=== PATIENT | female | born 1995 | race Caucasian/White ===

== ENCOUNTER 2017-06-03 21:23 | Inpatient (IN) | payer BC, OTHER ==
[~2017-06-03] VITALS: Ht 160 cm; Wt 62.6 kg
[~2017-06-03 21:23] MED LIST: ALBU8.5H8 INH; ASCO250T5 PO; CLON0.1T PO; DICY20TA28 PO; FERR325T28 PO; GABA600T2 PO; HYDR-3895 PO; Ibuprofen PO; NORE1TAB PO; ONDA4TAB5 PO; QUET400T PO
[2017-06-04] MEDS ORDERED: ACETAMINOPHEN 325 MG TABLET PO PRN (02:30)
[2017-06-04] MEDS ORDERED: LOPERAMIDE HCL 2 MG CAPSULE PO PRN ×2 (02:30)
[2017-06-04] MEDS ORDERED: BUPRENORPHINE HCL 2 MG TAB.SUBL SL PRN ×3 (02:30→12:15)
[2017-06-04] MEDS ORDERED: MAG HYDROX/AL HYDROX/SIMETH 30 ML LIQUID UDC PO PRN (02:30)
[2017-06-04] MEDS ORDERED: ONDANSETRON ODT 4 MG TAB.RAPDIS SL PRN (02:30)
[2017-06-04] MEDS ORDERED: diphenhydrAMINE 50 MG CAPSULE PO PRN (02:30)
[2017-06-04] MEDS ORDERED: DICYCLOMINE HCL 20 MG TABLET PO PRN (02:30)
[2017-06-04] MEDS ORDERED: MAGNESIUM HYDROXIDE 30 ML LIQUID UDC PO PRN (02:30)
[2017-06-04] MEDS ORDERED: CLONIDINE HCL 0.1 MG TABLET PO PRN (02:30)
[2017-06-04 03:15] LABS: ALANINE AMINOTRANSFERASE 30 U/L (14-59); ALKALINE PHOSPHATASE 87 U/L (50-136); ASPARTATE AMINOTRANSFERASE 10 U/L (15-37); BILIRUBIN,TOTAL 0.3 mg/dL (0.2-1.0); CARBON DIOXIDE 25 mmol/L (21-32); CHLORIDE 105 mmol/L (98-107); GLUCOSE 132 mg/dL (74-106); MAGNESIUM 2.2 mg/dL (1.8-2.4); POTASSIUM 3.8 mmol/L (3.5-5.1); TOTAL PROTEIN, SERUM 7.9 g/dL (6.4-8.2); UREA NITROGEN, BLOOD 8 mg/dL (7-18)
[2017-06-04 03:18] LABS: *URINE HCG, QUAL NEGATIVE (NEGATIVE)
[2017-06-04 03:19] LABS: ETHANOL < 3 MG/DL (0-0)
[2017-06-04 03:24] LABS: THYROID STIMULATING HORMONE 0.732 mIU/mL (0.358-3.740)
[2017-06-04 03:27] LABS: *AMPHETAMINE, URINE POSITIVE (NEGATIVE); *BARBITURATE, URINE NEGATIVE (NEGATIVE); *CANNABINOID, URINE POSITIVE (NEGATIVE); *COCCAINE, URINE NEGATIVE (NEGATIVE); *OPIATE, URINE POSITIVE (NEGATIVE); *PHENCYCLIDINE SCREEN,URINE NEGATIVE (NEGATIVE)
[2017-06-04 04:00] VITALS: BP 136/79
[2017-06-04 04:03] LABS: BASOPHILS % (AUTO) 0.4 % (0.0-2.0); EOSINOPHILS # (AUTO) 0.1 K/uL (0.0-0.7); EOSINOPHILS % (AUTO) 0.9 % (0.0-7.0); HEMATOCRIT 34.1 % (37-47); HEMOGLOBIN 11.3 G/DL (12.0-16.0); LYMPHOCYTES # (AUTO) 2.7 K/UL (0.8-4.8); LYMPHOCYTES % (AUTO) 30.8 % (20.5-51.5); MEAN CORPUSCULAR HEMOGLOBIN 26.5 UUG (27.0-31.0); MEAN CORPUSCULAR HGB CONC 33 g/dL (32.0-37.0); MEAN CORPUSCULAR VOLUME 80.1 FL (81.0-99.0); MONOCYTES # (AUTO) 0.7 K/UL (0.1-1.30); MONOCYTES % (AUTO) 7.6 % (0.0-11.0); NEUTROPHILS # (AUTO) 5.3 K/UL (1.8-8.9); NEUTROPHILS % (AUTO) 60.3 % (38.5-71.5); PLATELET COUNT (AUTO) 348 K/UL (150-450); RED BLOOD CELL COUNT(AUTO) 4.25 MIL/UL (4.2-5.4); WHITE BLOOD COUNT (AUTO) 8.8 K/UL (4.0-11.2)
[2017-06-04] MEDS ORDERED: QUET50TA PO (04:17)
[2017-06-04] MEDS: METHOCARBAMOL 750 MG TABLET PO PRN ×2 (04:24→13:52)
[2017-06-04] MEDS: IBUPROFEN 400 MG TABLET PO PRN ×2 (04:24→13:51)
[2017-06-04] MEDS: HYDROXYZINE PAMOATE 25 MG CAPSULE PO PRN ×2 (04:24→13:52)
[2017-06-04] MEDS ORDERED: diphenhydrAMINE 50 MG CAPSULE ONE (04:27)
[2017-06-04] MEDS ORDERED: IBUPROFEN 400 MG TABLET ONE (04:27)
[2017-06-04] MEDS ORDERED: CLONIDINE HCL 0.1 MG TABLET ONE (04:27)
[2017-06-04] MEDS ORDERED: METHOCARBAMOL 750 MG TABLET ONE (04:28)
[2017-06-04] MEDS ORDERED: HYDROXYZINE PAMOATE 25 MG CAPSULE ONE (04:28)
[2017-06-04 08:00] VITALS: BP 104/65
[2017-06-04] MEDS: MULTIVITAMINS,THERAPEUTIC TABLET PO SCH (09:27)
[2017-06-04] MEDS ORDERED: ALBUTEROL SULFATE 2.5 MG/3 ML NEBU NEB PRN (11:15)
[2017-06-04] MEDS ORDERED: ALBUTEROL SULFATE 8 GM HFA.AER.AD INH PRN (11:15)
[2017-06-04] MEDS ORDERED: VENTOLIN IH PRN (11:30)
[2017-06-04 12:00] VITALS: BP 111/47
[2017-06-04] MEDS ORDERED: Medication Not On Formulary EA (Gabapentin 600 MG) PO SCH (13:00)
[2017-06-04] MEDS: GABAPENTIN 300 MG CAPSULE PO SCH ×2 (13:51→17:01)
[2017-06-04 16:00] VITALS: BP 115/73
[2017-06-04 20:00] VITALS: BP 125/71
[2017-06-04] MEDS ORDERED: QUETIAPINE FUMARATE 200 MG TABLET PO SCH (21:00)
[2017-06-04] MEDS: FERROUS SULFATE 325 MG TABEC PO SCH (21:50)
[2017-06-05] VITALS (7 sets, daily range): BP systolic 101–127; BP diastolic 58–85
[2017-06-05 06:07] LABS: HEPATITIS B SURFACE AG Negative (Negative)
[2017-06-05] MEDS: ETHINYL ESTRADIOL PO SCH (09:00)
[2017-06-05] MEDS: [UNRECOGNIZED DRUG - OTHER] PO SCH (09:00)
[2017-06-05] MEDS ORDERED: TUBERCULIN,PURIF.PROT.DERIV. 5 TU/0.1 ML TEST ID ONE (09:00)
[2017-06-05] MEDS: NORETHINDRONE PO SCH (09:00)
[2017-06-05] MEDS ORDERED: NORETHINDRONE ETHINYL ESTRAD PO SCH (09:00)
[2017-06-05] MEDS: GABAPENTIN 300 MG CAPSULE PO SCH ×3 (10:04→17:13)
[2017-06-05] MEDS: MULTIVITAMINS,THERAPEUTIC TABLET PO SCH (10:04)
[2017-06-05] MEDS: FERROUS SULFATE 325 MG TABEC PO SCH ×2 (10:04→20:38)
[2017-06-05] MEDS: ASCORBIC ACID 250 MG TABLET PO SCH (10:04)
[2017-06-05] MEDS: BUPRENORPHINE HCL 2 MG TAB.SUBL SL SCH ×3 (11:32→20:38)
[2017-06-05] MEDS: METHOCARBAMOL 750 MG TABLET PO PRN (20:38)
[2017-06-05] MEDS: QUETIAPINE FUMARATE 200 MG TABLET PO SCH ×2 (21:46→23:07)
[2017-06-06] VITALS: BP 123/80
[2017-06-06 08:00] VITALS: BP 124/71
[2017-06-06] MEDS ORDERED: BUPRENORPHINE HCL 2 MG TAB.SUBL SL SCH ×2 (09:00→15:00)
[2017-06-06] MEDS: ETHINYL ESTRADIOL PO SCH (09:00)
[2017-06-06] MEDS: [UNRECOGNIZED DRUG - OTHER] PO SCH (09:00)
[2017-06-06] MEDS: NORETHINDRONE PO SCH (09:00)
[2017-06-06] MEDS: MULTIVITAMINS,THERAPEUTIC TABLET PO SCH (10:06)
[2017-06-06] MEDS: ASCORBIC ACID 250 MG TABLET PO SCH (10:06)
[2017-06-06] MEDS: GABAPENTIN 300 MG CAPSULE PO SCH ×3 (10:06→17:00)
[2017-06-06] MEDS: FERROUS SULFATE 325 MG TABEC PO SCH ×2 (10:06→20:56)
[2017-06-06 12:00] VITALS: BP 118/64
[2017-06-06] MEDS ORDERED: IBUPROFEN 600 MG TABLET PO PRN (12:15)
[2017-06-06] MEDS ORDERED: KETOROLAC TROMETHAMINE 30 MG INJ IM PRN (12:15)
[2017-06-06] MEDS: BUPRENORPHINE HCL 2 MG TAB.SUBL SL SCH ×3 (13:00→20:57)
[2017-06-06] MEDS: BACLOFEN 10 MG TABLET PO SCH ×2 (15:00→20:56)
[2017-06-06 16:00] VITALS: BP 115/62
[2017-06-06 20:00] VITALS: BP 128/64
[2017-06-06] MEDS: QUETIAPINE FUMARATE 200 MG TABLET PO SCH (20:56)
[2017-06-07] VITALS: BP 132/68
[2017-06-07] MEDS: QUETIAPINE FUMARATE 200 MG TABLET PO SCH ×3 (00:06→22:46)
[2017-06-07 04:00] VITALS: BP 130/72
[2017-06-07 08:13] VITALS: BP 113/72
[2017-06-07] MEDS: NORETHINDRONE PO SCH (09:00)
[2017-06-07] MEDS: [UNRECOGNIZED DRUG - OTHER] PO SCH (09:00)
[2017-06-07] MEDS: ETHINYL ESTRADIOL PO SCH (09:00)
[2017-06-07] MEDS: ASCORBIC ACID 250 MG TABLET PO SCH (09:51)
[2017-06-07] MEDS: GABAPENTIN 300 MG CAPSULE PO SCH ×3 (09:51→17:00)
[2017-06-07] MEDS: MULTIVITAMINS,THERAPEUTIC TABLET PO SCH (09:51)
[2017-06-07] MEDS: BACLOFEN 10 MG TABLET PO SCH ×3 (09:51→21:06)
[2017-06-07] MEDS: FERROUS SULFATE 325 MG TABEC PO SCH ×2 (09:51→21:06)
[2017-06-07] MEDS: BUPRENORPHINE HCL 2 MG TAB.SUBL SL SCH ×3 (09:51→21:06)
[2017-06-07 12:25] VITALS: BP 125/76
[2017-06-07 17:04] VITALS: BP 114/71
[2017-06-07 20:00] VITALS: BP 116/67
[2017-06-08] VITALS: BP 121/74
[2017-06-08 08:00] VITALS: BP 117/64
[2017-06-08] MEDS: [UNRECOGNIZED DRUG - OTHER] PO SCH (09:00)
[2017-06-08] MEDS: BACLOFEN 10 MG TABLET PO SCH ×3 (09:00→20:45)
[2017-06-08] MEDS ORDERED: BUPRENORPHINE HCL 2 MG TAB.SUBL SL SCH (09:00)
[2017-06-08] MEDS: ASCORBIC ACID 250 MG TABLET PO SCH (09:00)
[2017-06-08] MEDS: NORETHINDRONE PO SCH (09:00)
[2017-06-08] MEDS: MULTIVITAMINS,THERAPEUTIC TABLET PO SCH (09:00)
[2017-06-08] MEDS: FERROUS SULFATE 325 MG TABEC PO SCH ×2 (09:00→20:45)
[2017-06-08] MEDS: GABAPENTIN 300 MG CAPSULE PO SCH ×3 (09:00→17:18)
[2017-06-08] MEDS: ETHINYL ESTRADIOL PO SCH (09:00)
[2017-06-08 12:00] VITALS: BP 116/91
[2017-06-08 16:00] VITALS: BP 116/60
[2017-06-08] MEDS ORDERED: DICY20TA28 PO (16:42)
[2017-06-08] MEDS ORDERED: GABA-534 PO (16:42)
[2017-06-08] MEDS ORDERED: CLON0.1T14 PO (16:42)
[2017-06-08] MEDS ORDERED: METH-406 PO (16:42)
[2017-06-08] MEDS ORDERED: QUET200T PO (16:42)
[2017-06-08] MEDS ORDERED: HYDR-3895 PO (16:42)
[2017-06-08 17:31] LABS: *AMPHETAMINE, URINE NEGATIVE (NEGATIVE); *BARBITURATE, URINE NEGATIVE (NEGATIVE); *CANNABINOID, URINE POSITIVE (NEGATIVE); *COCCAINE, URINE NEGATIVE (NEGATIVE); *OPIATE, URINE NEGATIVE (NEGATIVE); *PHENCYCLIDINE SCREEN,URINE NEGATIVE (NEGATIVE)
[2017-06-08 20:00] VITALS: BP 121/73
[2017-06-08] MEDS: QUETIAPINE FUMARATE 200 MG TABLET PO SCH ×2 (20:45→21:30)
[2017-06-09] VITALS: BP 135/84
[2017-06-09 04:00] VITALS: BP 125/80
[2017-06-09] MEDS: NORETHINDRONE PO SCH (09:00)
[2017-06-09] MEDS: [UNRECOGNIZED DRUG - OTHER] PO SCH (09:00)
[2017-06-09] MEDS: ETHINYL ESTRADIOL PO SCH (09:00)
[2017-06-09 09:09] VITALS: BP 111/69
[2017-06-09] MEDS: GABAPENTIN 300 MG CAPSULE PO SCH (09:19)
[2017-06-09] MEDS: BACLOFEN 10 MG TABLET PO SCH (09:19)
[2017-06-09] MEDS: ASCORBIC ACID 250 MG TABLET PO SCH (09:19)
[2017-06-09] MEDS: MULTIVITAMINS,THERAPEUTIC TABLET PO SCH (09:19)
[2017-06-09] MEDS: FERROUS SULFATE 325 MG TABEC PO SCH (09:19)
== END 2017-06-09 11:30 | disposition home or self-care (01) | DRG 895 ==
LOC: SRC 06-04 01:09
PROVIDERS: ADMIT Internal Medicine; ATTEND Internal Medicine
PROC: HZ2ZZZZ Detoxification Services for Substance Abuse Treatment (ICD-10-PCS; principal; 2017-06-04)
PROC: HZ31ZZZ Individual Counseling for Substance Abuse Treatment, Behavioral (ICD-10-PCS; 2017-06-07)
DX: F11.23 Opioid dependence with withdrawal (principal); D50.9 Iron deficiency anemia, unspecified; F25.0 Schizoaffective disorder, bipolar type; F17.210 Nicotine dependence, cigarettes, uncomplicated; F41.9 Anxiety disorder, unspecified; F12.90 Cannabis use, unspecified, uncomplicated; J45.20 Mild intermittent asthma, uncomplicated; Z81.4 Family history of other substance abuse and dependence; Z59.1 Inadequate housing; Z79.899 Other long term (current) drug therapy; F15.23 Other stimulant dependence with withdrawal; G47.00 Insomnia, unspecified; Z20.5 Contact with and (suspected) exposure to viral hepatitis
CPT/HCPCS: 36415; 80307; 80324; 80349; 80361; 83735; 84443; 84703; 85025; 86580; 86592; 86705; 86803; 87340; 87806; A4663; G0480; Q0163